=== PATIENT | male | born 1980 | race African-American/Black ===

== ENCOUNTER 2018-02-23 06:53 | Inpatient (IN) | payer MEDICARE, OTHER ==
[~2018-02-23] VITALS: Ht 177.8 cm; Wt 101.7 kg
[2018-02-23 11:13] VITALS: BP 133/78; PULSE 75; RESP 18; TEMP 97.4
[2018-02-23] MEDS ORDERED: GEOD80CA PO (17:55)
[2018-02-23] MEDS ORDERED: ABIL30TA5 PO (17:55)
[2018-02-24 06:13] VITALS: BP 149/88; PULSE 66; RESP 17; TEMP 96.7; O2SAT 96
[2018-02-24 09:17] LABS: BICARBONATE 27.6 MEQ/L (21.0-32.0); BLOOD UREA NITROGEN 13 MG/DL (7-18); CALCIUM 8.8 MG/DL (8.5-10.1); CHLORIDE 104 MEQ/L (98-107); CREATININE 1.06 MG/DL (0.60-1.30); GLOMERULAR FILTRATION RATE 95 ML/MIN (>89); GLUCOSE,RANDOM 116 MG/DL (74-106); SODIUM (NA) 139 MEQ/L (136-145)
[2018-02-24 09:18] LABS: CHOLESTEROL 174 MG/DL (120-200); TRIGLYCERIDES 102 MG/DL (42-150)
[2018-02-24 09:21] LABS: CHOLESTEROL/ HDL RATIO 2.52 RATIO; HDL CHOLESTEROL 68.8 MG/DL (40.0-60.0); LDL CHOLESTEROL 85 MG/DL (0-99)
[2018-02-24 11:15] LABS: HEMOGLOBIN A1C 5.3 % (4.3-6.0)
[2018-02-24] MEDS ORDERED: ALUMINUM/MAGNESIUM/SIMETH 30 ML CUP PO PRN (11:30)
[2018-02-24] MEDS ORDERED: ACETAMINOPHEN 325 MG TAB PO PRN (11:30)
[2018-02-24] MEDS ORDERED: ZIPRASIDONE HCL 40 MG CAP PO ONE (11:30)
[2018-02-24] MEDS ORDERED: MAGNESIUM HYDROXIDE SUSP 30 ML CUP PO PRN (11:30)
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
[2018-02-24] MEDS: ARIPiprazole 30 MG TAB PO SCH (12:24)
[2018-02-24 17:39] VITALS: BP 109/65; PULSE 65; RESP 18; TEMP 98.4; O2SAT 100
[2018-02-24] MEDS ORDERED: ZIPRASIDONE HCL 80 MG CAP PO SCH (21:00)
[2018-02-25 05:55] VITALS: BP 117/82; PULSE 63; RESP 18; TEMP 97.1; O2SAT 100
[2018-02-25] MEDS: ARIPiprazole 30 MG TAB PO SCH (08:33)
--- NOTE | 2018-02-25 11:09 | HHI.PYPN ---
Subjective Remarks This note serves as second opinion for involuntary psychiatric hospitalization. Patient seen and examined with nurse. Chart reviewed. Documentation from [facility] reviewed. Patient presented there reporting that he had run out of his medications and was experiencing depression and suicidal ideation. Case discussed with nursing staff. No behavioral issues noted by nursing. Case discussed with counselor. On my examination today, patient reports that back on medications his psychotic symptoms are starting to salomón. He was experiencing some mild paranoia this morning but he denies any suicidal or homicidal ideation presently. Mood is "pretty all right" and I can elicit no depressive or hypomanic/manic symptoms. He denies any audiovisual hallucinations. Remainder of the psychiatric ROS is negative. No physical complaints. Patient is agreeable to remaining in the hospital voluntarily. Past psychiatric history: The patient reports a history of schizophrenia. He is not currently under the care of a psychiatrist and has been getting refills on his medications from [facility]. He endorses 1 previous suicide attempt in 2002 when he cut himself. Family history: The patient denies a family history of serious mental illness or suicide. Chemical dependency history: The patient reports occasional cannabis and alcohol use. Denies any other substance use. Social history: The patient is single. He has 2 children who reside with their mother. He has his GED and does "odds and ends work" at an [employer]. He also collects SSI. He denies any access to guns or firearms. He reports that his housing situation is presently unstable. Review of Systems Except as stated in HPI: all other systems reviewed are Neg Mental Status Examination Appearance: Appropriate Consciousness: Alert Orientation: x4 Motor Activity: Other (No motor abnormalities noted) Speech: Unremarkable Language: Adequate Fund of Knowledge: Adequate Attention and Concentration: Other (Fair) Memory: Unremarkable Mood: Other ("Pretty all right") Affect: Blunt Thought Process & Associations: Intact, Logical, Linear Thought Content: Appropriate Hallucination Type: None Delusion Type: Paranoid (Decreasing) Suicidal Ideation: No Suicidal Plan: No Suicidal Intention: No Homicidal Ideation: No Homicidal Plan: No Homicidal Intention: No Insight: Adequate Judgment: Adequate Results Labs Laboratories from outside hospital reviewed: CBC unremarkable. BMP unremarkable. Tylenol and salicylate level undetectable. Alcohol level undetectable. Urine toxicology positive only for cannabinoids. Vitals/IOs Vital Signs Date Time Temp Pulse Resp B/P (MAP) Pulse Ox O2 Delivery O2 Flow Rate FiO2 02/25/18 05:55 97.1 63 18 117/82 (94) 100 Assessment & Plan Problem List: (1) Schizoaffective disorder, depressive type ICD Codes: F25.1 - Schizoaffective disorder, depressive type (2) Marijuana abuse ICD Codes: F12.10 - Cannabis abuse, uncomplicated Assessment & Plan I nurse advocate patient is capacitated to consent for admission and for medication/ treatment and therefore does not meet criteria for involuntary psychiatric hospitalization. He is agreeable to remaining voluntarily for further treatment. We discussed medication adjustments to target patient's reported residual psychotic symptoms. He is generally pleased with his medication regimen of Abilify and Geodon and is tolerating this well, and so we discussed titrating Geodon to target residual symptoms. He does express some interest in long-acting injectable. I called to the pharmacy, and we presently have no Abilify Maintena available, but I can provide patient with a script for this on discharge. R/B/A for medication changes discussed with patient. Continue to monitor on the inpatient unit. Continue other medications and care as ordered. Justification for Cont. Inpt. Resolving impairment in reality construction. Medication changes. Discharge Planning Pending psychiatric stabilization Request HC Surrog/Guard Advoc?: No Jl Seo MD Feb 25, 2018 11:09
[2018-02-25] MEDS: ZIPRASIDONE HCL 20 MG CAP PO SCH (17:48)
[2018-02-25 18:30] VITALS: BP 141/79; PULSE 83; RESP 16; TEMP 98.6; O2SAT 99
[2018-02-25] MEDS: hydrOXYzine HCL 50 MG TAB PO PRN (21:17)
[2018-02-26 06:25] VITALS: BP 111/73; PULSE 65; RESP 20; TEMP 97.6; O2SAT 100
[2018-02-26] MEDS: ARIPiprazole 30 MG TAB PO SCH (09:00)
[2018-02-26] MEDS: hydrOXYzine HCL 50 MG TAB PO PRN (09:04)
--- NOTE | 2018-02-26 09:10 | HHI.PYPN ---
Subjective Remarks Patient seen and examined with nurse. Chart reviewed. Case discussed with nursing staff. No behavioral issues noted. Case discussed in treatment team. On my examination today, the patient reports mood is "fine." He denies any suicidal or homicidal ideation. Denies any paranoia. Denies audiovisual hallucinations. Some mild thought disorder, improving. Denies side effects from medications. Hopeful for discharge within the next day or 2. We discussed that Abilify Maintena is not presently available in the pharmacy, and patient is agreeable to accepting a prescription for this medication to be administered on an outpatient basis. He declines any other medication adjustment at this time. Review of Systems Except as stated in HPI: all other systems reviewed are Neg Mental Status Examination Appearance: Appropriate Consciousness: Alert Orientation: x4 Motor Activity: Other (No abnormal motor movements noted) Speech: Unremarkable Language: Adequate Fund of Knowledge: Adequate Attention and Concentration: Other (Fair) Memory: Unremarkable Mood: Other ("Pretty all right") Affect: Blunt Thought Process & Associations: Circumstantial (Mild) Thought Content: Appropriate Hallucination Type: None Delusion Type: None Suicidal Ideation: No Suicidal Plan: No Suicidal Intention: No Homicidal Ideation: No Homicidal Plan: No Homicidal Intention: No Insight: Adequate Judgment: Adequate Results Labs Labs reviewed. TSH within normal limits. Vitals/IOs Vital Signs Date Time Temp Pulse Resp B/P (MAP) Pulse Ox O2 Delivery O2 Flow Rate FiO2 02/26/18 06:25 97.6 65 20 111/73 (86) 100 Assessment & Plan Problem List: (1) Schizoaffective disorder, depressive type ICD Codes: F25.1 - Schizoaffective disorder, depressive type (2) Marijuana abuse ICD Codes: F12.10 - Cannabis abuse, uncomplicated Assessment & Plan Continue Geodon and Abilify as ordered. Continue to monitor on the inpatient unit. Continue other medications and care as ordered. Justification for Cont. Inpt. Risk for decompensation in less restrictive environment. Discharge Planning Possible discharge tomorrow or . Request HC Surrog/Guard Advoc?: No Jl Seo MD Feb 26, 2018 09:10
--- NOTE | 2018-02-26 09:33 | PD.TTN ---
Patient Problems 1. Discharge planning 2. Medication compliance 3. Knowledge deficit 4. Lack of coping skills Progress Toward Goals Provider Present: Dr. Laya Seo Provider Input: 02/26/18 - Dr. Seo reported that he has increased patient's Geodon, and that the patient is improving. Patient has requested to be discharged home tomorrow, per Dr. Seo's report. Psychiatric Counselors Present: CHASE Steel Psych Therapist Input: 02/26/18 - Patient will be discharged tomorrow and counselor will arrange for patient's psychiatric follow-up appointment at [facility], or [facility]. Group Spec/RT/OT/CHANG Present: CHARLENE Mena Group Spec/RT/OT/CHANG Input: 02/26/18 - Patient is not attending groups and isolates to his room and bed. Discharge Plan [facility] 02/26/18 - Patient will receive psychiatric follow-up services from [facility]. Documentation Scribe: CHASE Steel Date Resolved: Feb 26, 2018 Patt Bach Feb 26, 2018 09:33
--- NOTE | 2018-02-26 16:15 | EKG ---
Date Performed: 02/25/2018 Time Performed: 14:42:57 PTAGE: 37 years EKG: Sinus rhythm NORMAL ECG NO PREVIOUS TRACING DOCTOR: Jack Babin Interpretating Date/Time 02/26/2018 16:10:44
[2018-02-26] MEDS: ZIPRASIDONE HCL 20 MG CAP PO SCH (17:43)
[2018-02-26 18:25] VITALS: BP 123/82; PULSE 77; RESP 18; TEMP 98.3; O2SAT 100
[2018-02-27 06:00] VITALS: BP 103/83; PULSE 70; RESP 20; TEMP 97.3; O2SAT 98
[2018-02-27 06:41] VITALS: BP 103/83; PULSE 70; RESP 20; TEMP 97.3; O2SAT 98
[2018-02-27] MEDS: ARIPiprazole 30 MG TAB PO SCH (08:41)
[2018-02-27] MEDS ORDERED: ABIL30TA5 PO (10:26)
[2018-02-27] MEDS ORDERED: ZIPR20 PO (10:26)
[2018-02-27] MEDS ORDERED: HYDR50TA94 PO (10:26)
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
== END 2018-02-27 12:27 | disposition home or self-care (01) | DRG 885 ==
LOC: H270 10:14 → H260 02-25 12:05
PROVIDERS: ADMIT Psychiatry & Neurology Psychiatry; ATTEND Psychiatry & Neurology Psychiatry
DX: F25.1 Schizoaffective disorder, depressive type (principal); R45.851 Suicidal ideations; F12.10 Cannabis abuse, uncomplicated; Z59.0 Homelessness; Z72.0 Tobacco use; Z91.14 Patient's other noncompliance with medication regimen; Z91.5 Personal history of self-harm
CPT/HCPCS: 80048; 80061; 83036; 84443; 93005